=== PATIENT | male | born 2000 | race Two or more races ===

== ENCOUNTER 2024-11-26 13:50 | Emergency (ER) | payer OTHER ==
[~2024-11-26] VITALS: Ht 172.7 cm; Wt 72.0 kg
[2024-11-26 13:59] VITALS: O2SAT 100
[2024-11-26 14:06] VITALS: BP 118/95; PULSE 100; RESP 18; TEMP 36.9; O2SAT 97
[2024-11-26] MEDS ORDERED: ACET-2708 MT (14:59)
[2024-11-26] MEDS ORDERED: IBUP-2029 MT (14:59)
[2024-11-26] MEDS ORDERED: HYDR-4001 MT (14:59)
[2024-11-26] MEDS ORDERED: AMOX1TAB16 MT (14:59)
[2024-11-26] MEDS: HYDROCODONE/ACETAMINOPHEN 5/325MG TABLET PO ONE (15:11)
[2024-11-26] MEDS: KETOROLAC 30MG/ML VIAL IM ONE (15:11)
== END 2024-11-26 15:15 | disposition home or self-care (01) ==
LOC: ER 13:50
DX: K08.89 Other specified disorders of teeth and supporting structures (principal); Z79.899 Other long term (current) drug therapy; Z98.890 Other specified postprocedural states; Z86.59 Personal history of other mental and behavioral disorders
CPT/HCPCS: 99283; 96372; J1885; A4606